=== PATIENT | male | born 1990 | race Caucasian/White ===

== ENCOUNTER 2016-11-17 12:21 | Emergency (ER) | payer OTHER ==
[2016-11-17 14:14] VITALS: BP 135/86
--- NOTE | 2016-11-17 14:52 | RAD ---
Indication: Pain top of LEFT foot following playing soccer one week ago without specific injury. Comparison: April 22, 2008 Technique: AP, lateral, and oblique views LEFT foot. Report: Negative for radiographic stigmata of stress reaction. Negative for fracture. Normal articular alignment. No arthropathic change evident. Unremarkable soft tissue contours. IMPRESSION: Negative exam.
--- NOTE | 2016-11-17 15:40 | UC ---
Lower Extremity/Ankle HPI - HPI Summary HPI Summary: PATIENT ARRIVES TO WITH CC OF LEFT ANTERIOR FOOT PAIN X 1 WEEK. HE STATES ABOUT 9 DAYS AGO, WHILE IN [place], HE WAS PLAYING SOCCER BAREFOOT. AFTER PLAYING FOR SOME TIME HE NOTICED HE HAD PAIN ON THE TOP OF HIS LEFT FOOT. IN 2007 HE HAD A FRACTURED METATARSAL OF THIS FOOT. THE PAIN IS GETTING WORSE BUT HE ADMITS TO NOT RESTING MUCH. HIS FOOT FEELS COLD AND HIS TOES FEEL A LITTLE NUMB. HE WOULD LIKE AN XRAY IF POSSIBLE. DENIES NUMBNESS OR TINGLING. PATIENT DENIES KNOWN TRAUMA. NO KNOWN CARDIAC HISTORY, PERSONAL OR FAMILY. HE DOES NOT SUFFER FROM CHRONIC CLAUDICATION AND IS NOT A DIABETIC. PATIENT ENDORSES TRAVEL FROM [facility] REC[facility]LY, BUT DISCOLORATION OF DUSKY REDNESS ON TOP OF FOOT HAD BEEN PRESENT PRIOR TO RETURN HOME ON A FLIGHT. DENIES CALF PAIN. NON-SMOKER. - History of Current Complaint Chief Complaint: UpperExtremity Stated Complaint: FOOT COMPLAINT Time Seen by Provider: 11/17/16 14:38 Hx Obtained From: Patient Onset/Duration: Gradual Onset Severity Initially: Moderate Severity Currently: Moderate Pain Intensity: 5 Pain Scale Used: 0-10 Numeric Aggravating Factor(s): Standing, Ambulation Alleviating Factor(s): Rest, Elevation Able to Bear Weight: Yes - Risk Factors Gout Risk Factors: Negative DVT Risk Factors: Negative Septic Arthritis Risk Factor: Negative PMH/Surg Hx/FS Hx/Imm Hx Previously Healthy: Yes Endocrine History Of: Denies: Diabetes, Thyroid Disease Cardiovascular History Of: Denies: Cardiac Disorders, Hypertension Respiratory History Of: Denies: COPD, Asthma GI/ History Of: Denies: Ulcer - Surgical History Surgical History: None - Family History Known Family History: Positive: None - Social History Occupation: Employed Full-time Lives: With Family Alcohol Use: Occasionally Substance Use Type: None Smoking Status (MU): Never Smoked Tobacco Review of Systems Constitutional: Negative ENT: Negative Respiratory: Negative Cardiovascular: Negative Motor: Negative Neurovascular: Negative Musculoskeletal: Arthralgia - ANTERIOR PORTION OF LEFT FOOT Neurological: Negative Psychological: Negative All Other Systems Reviewed And Are Negative: Yes Physical Exam Triage Information Reviewed: Yes Appearance: Well-Appearing, No Pain Distress, Well-Nourished Vital Signs: Initial Vital Signs Temp 98.7 F 11/17/16 14:09 Pulse 62 11/17/16 14:09 Resp 16 11/17/16 14:09 BP 135/86 11/17/16 14:09 Pulse Ox 100 11/17/16 14:09 Vital Signs Reviewed: Yes Eye Exam: Normal Eyes: Positive: Conjunctiva Clear ENT Exam: Normal Neck exam: Normal Neck: Positive: Supple, No Lymphadenopathy Respiratory Exam: Normal Respiratory: Positive: Chest non-tender Cardiovascular Exam: Normal Cardiovascular: Positive: RRR Musculoskeletal Exam: Normal Musculoskeletal: Positive: Strength Intact, ROM Intact Neurological Exam: Normal Neurological: Positive: Alert Psychological Exam: Normal Psychological: Positive: Normal Response To Family Skin: Positive: Other - DUSKY RED AREA OVER ANTERIOR PORTION OF LEFT FOOT MEASURING 3X3 CM PRESENT SINCE FLA TRIP. Lower Extremity Course/Dx - Course Course Of Treatment: XRAY OF FOOT REVEALS NO FRACTURE. PREVIOUSLY DX WITH STRESS FX IN 2007. FEELS SIMILAR. HE STATES HE HAS A WALKING BOOT AT HOME AND IN 2007 USED THE BOOT AND JIAN WRAPS UNTIL HEALED. PROVIDER ENCOURAGED IBUPROFEN 600MG THREE TIMES DAILY, JIAN WRAP, BOOT AND FOLLOW UP WITH SOMEONE FROM DR. COONEY'S OFFICE D/T POSSIBLE STRESS FX OR OTHER ORTHO PATHOLOGY. GOOD PULSES. NO DECREASED SENSATION ON PHYSICAL EXAM. [place]PRICK WNL. PATIENT AGREES WITH DISCHARGE AND WILL FOLLOW UP. TREATED FOR TENDONITIS OF THE FOOT WITH REST, IBUPROFEN AND ICE. LIKELY STRESS FRACTURE WHICH WILL NEED MORE INTERVENTION FROM ORTHO. BOOT AND JIAN WRAP AT HOME. - Differential Dx/Diagnosis Differential Diagnosis/HQI/PQRI: Bursitis, Sprain, Strain, Tendonitis Provider Diagnoses: TENDONITIS Discharge - Discharge Plan Condition: Stable Disposition: HOME Patient Education Materials: Tendinitis (ED) Referrals: Gavin Steve MD [Medical Doctor] - Aaliyah Cooney MD [Medical Doctor] - Additional Instructions: Ibuprofen 600mg three times daily for pain and inflammation Use boot and jian wraps daily for comfort Try to rest the foot as much as possible follow up with Dr. Cooney or someone from her clinic. Return if symptoms become worse such as decreased sensation, worsening pain, decreased blood flow present by paleness or cold foot
== END 2016-11-17 15:15 | disposition home or self-care (01) ==
LOC: UCEAST 12:21
DX: M77.52 Other enthesopathy of left foot and ankle (principal)
CPT/HCPCS: 99211; G0463